=== PATIENT | male | born 1975 | race Native Hawaiian/Other Pacific Islander ===

== ENCOUNTER 2019-02-06 03:01 | Emergency (ER) | payer SELFPAY ==
[2019-02-06 03:06] VITALS: BP 108/65; PULSE 57; RESP 18; TEMP 36.6; O2SAT 97; BMI 32.4
--- NOTE | 2019-02-06 03:19 | ED_ITS ---
HPI - Abdominal Pain General Chief Complaint: Abdominal Pain Stated Complaint: abdominal pain Time Seen by Provider: 02/06/19 03:02 Source: patient Mode of arrival: ambulatory Limitations: no limitations History of Present Illness HPI narrative: Patient is an otherwise healthy 43-year-old male. Here for evaluation of left-sided abdominal pain. He states that it started yesterday but then got worse last evening. Had 1 episode of nausea but since then has not had any of those symptoms. No change in bowel habits. No problems with urinating. He states that a couple years ago he was diagnosed with diverticulitis. He states that this feels very similar to when he received that diagnosis. Has never had a kidney stone before. No rashes. No recent travel. No fevers. Related Data Home Medications Medication Instructions Recorded Confirmed ACETAMINOPHEN #0 06/29/16 Previous Rx's Medication Instructions Recorded amoxicillin-pot clavulanate 875 mg PO BID 14 Days #0 tab 06/30/16 [Augmentin] hydrocodone-acetaminophen 0 tab PO Q6HP PRN #15 tab 06/30/16 ondansetron [Zofran ODT] 4 mg SUBLINGUAL Q6HP PRN #20 odt 06/30/16 amoxicillin-pot clavulanate 1 tab PO BID 10 Days #20 tab 02/06/19 [Augmentin] hydrocodone-acetaminophen [[place]] 1 tab PO Q4-6H PRN #10 tab 02/06/19 ondansetron HCl [Zofran] 4 mg PO Q6-8H PRN #10 tab 02/06/19 Review of Systems Constitutional Denies fatigue, Denies fever(s) and Denies headache(s) ENT Ears, Nose, Mouth, and Throat: Denies headache(s) Cardiovascular Denies chest pain and Denies dyspnea Respiratory Denies dyspnea Gastrointestinal Gastrointestinal: Reports abdominal pain, Denies change in stool character, Denies constipation, Denies diarrhea, Reports nausea and Denies vomiting Genitourinary Denies dysuria Musculoskeletal Denies myalgias and Denies arthralgias Integumentary/Breasts Denies lesions and Denies rash Neurologic Denies headache(s) Endocrine Denies fatigue Hematologic/Lymphatic Denies easy bleeding and Denies easy bruising Allergic/Immunologic Denies urticaria PFSH Medical History Diverticulosis (Acute) Social History Smoking Status: Current every day smoker Social History Smoking Status: Current every day smoker Exam Initial Vital Signs Initial Vital Signs: Vital Signs Temperature 97.9 F 02/06/19 03:06 Pulse Rate 57 L 02/06/19 03:06 Respiratory Rate 18 02/06/19 03:06 Blood Pressure 108/65 02/06/19 03:06 Pulse Oximetry 97 02/06/19 03:06 Const General: cooperative, healthy appearing, comfortable, well developed, well groom ed and No acute distress Orientation: alert, awake and oriented x3 HENMT Head: normal to inspection and normocephalic Resp Effort & Inspection: normal respiratory effort Cardio Rate: regular rate Rhythm: regular rhythm Pulses: radial pulses present GI Inspection: non-distended Palpation: soft, No firm and tender (Left-sided abdomen with some guarding no right lower quadrant tenderness) Skin General: no rashes or lesions noted Neuro General: alert, awake and oriented x3 Cognition: normal cognition Speech: speech normal Extrem General: normal to inspection and capillary refill normal Psych Appearance: grossly normal and well kempt Course Orders Ordered: ED Orders 02/06/19 03:25 Complete Blood Count AUTO DIFF Stat Comprehensive Metabolic Panel Stat Lipase Stat Sodium Chloride (Normal Saline 0.9%) 1,000 mls @ 1,000 mls/hr IV BOLUS ONE Stop: 02/06/19 04:18 Last Admin: 02/06/19 03:30 Dose: 1,000 mls/hr Discontinued Medications Hydrocodone Bitart/Acetaminophen ([place] 5/325) 1 tab PO NOW ONE Stop: 02/06/19 03:36 Last Admin: 02/06/19 03:40 Dose: 1 tab Amoxicillin/Clavulanate Potassium (Augmentin 875-125 Mg) 1 tab PO NOW ONE Stop: 02/06/19 03:36 Last Admin: 02/06/19 03:40 Dose: 1 tab Vital Signs - 8 hr 02/06/19 03:06 Temperature 97.9 F Pulse Rate 57 L Respiratory Rate 18 Blood Pressure 108/65 Pulse Oximetry 97 MDM - Abdominal Pain Lab Data Attestation: I reviewed the patient's lab results. Result diagrams: 02/06/19 03:25 02/06/19 03:25 Lab Results 02/06/19 02/06/19 Range/Units 03:25 03:25 WBC 14.6 H (4.5-11.0) X10^3/uL RBC 5.18 (4.5-5.9) X10^6/uL Hgb 15.5 (13.5-17.5) g/dL Hct 46.2 (41-53) % MCV 89.1 (80-100) fL MCH 29.9 (26-34) PG MCHC 33.6 (30-36) % RDW 13.1 (11.6-14.8) % Plt Count 253 (150-400) X10^3/uL Neut % (Auto) 78.7 H (50-75) % Lymph % (Auto) 13.6 L (25-40) % [place] % (Auto) 6.2 (3-14) % Eos % (Auto) 1.0 L (2-4) % Baso % (Auto) 0.5 (0-2) % Neut # (Auto) 08384 H (7746-6115) /uL Lymph # (Auto) 2000 (5916-1984) /uL [place] # (Auto) 900 (0-900) /uL Eos # (Auto) 100 (0-450) /uL Baso # (Auto) 100 (0-100) /uL Sodium 137 (137-145) mmol/L Potassium 4.3 (3.4-5.1) mmol/L Chloride 103 (98-107) mmol/L Carbon Dioxide 26 (22-32) mmol/L BUN 14 (9-20) mg/dL Creatinine 0.90 (0.66-1.25) mg/dL Estimated GFR > 60.0 (>60) mL/min BUN/Creatinine Ratio 15.6 (6-22) Glucose 110 H (70-100) mg/dL Calcium 9.3 (8.4-10.2) mg/dL Total Bilirubin 0.9 (0.2-1.3) mg/dL AST 18 (17-59) IU/L ALT 27 (21-72) IU/L Alkaline Phosphatase 72 (38-126) U/L Total Protein 7.6 (6.3-8.2) g/dL Albumin 4.4 (3.5-5.0) g/dL Globulin 3.2 (1.7-4.1) g/dL Albumin/Globulin Ratio 1.4 (1.0-2.8) Lipase 18 L (23-300) U/L MDM Narrative Medical decision making narrative: Patient has a history of diverticulitis. He states that his symptoms have brought him in today were consistent with his josi or diagnosis. His exam is not consistent with kidney stones. Denies any urinary symptoms. Has no right lower quadrant tenderness. Low suspicion for appy. No right upper quadrant tenderness. Low suspicion for gallbladder pathology. Does have leukocytosis however a diagnosis of diverticulitis would explain this. Abdomen is not distended. It is not surgical in nature on his exam. I feel that given his presentation and his prior history of diverticulitis that this is most likely the diagnosis. Will hold on a CT scan for now. Was given 1st dose of antibiotics and pain medication here in the ER. Will send home with a prescription for these. He was given return precautions. He expressed understanding and agreement with plan. Discharge Plan Departure Patient Disposition: Home Clinical Impression: Diverticulitis Abdominal pain Qualifiers: Abdominal location: unspecified location Qualified Code(s): R10.9 - Unspecified abdominal pain Instructions: DI for Diverticulitis, DI for Abdominal Pain-Adult Activity Restrictions/Additional Instructions: Take the antibiotics as needed. I do recommend you contact your primary care doctor for a follow-up. Return to the emergency department for any new symptoms, worsening symptoms, fevers, worsening abdominal pain, any other concerning symptoms. Your 1st dose of antibiotics was given here in the ER. Her 2nd dose will be during the evening of 02/06/19 Prescriptions: New hydrocodone-acetaminophen [[place]] 5-325 mg tablet 1 tab PO Q4-6H PRN (Reason: pain) Qty: 10 RF: 0 ondansetron HCl [Zofran] 4 mg tablet 4 mg PO Q6-8H PRN (Reason: nausea and vomiting) Qty: 10 RF: 0 amoxicillin-pot clavulanate [Augmentin] 875-125 mg tablet 1 tab PO BID 10 Days Qty: 20 RF: 0 No Action ACETAMINOPHEN Qty: 0 RF: 0 hydrocodone-acetaminophen 5 MG/325 MG tablet PO Q6HP PRNQty: 15 RF: 0 ondansetron [Zofran ODT] 4 MG tablet,disintegrating 4 mg Sublingual Q6HP PRNQty: 20 RF: 0 amoxicillin-pot clavulanate [Augmentin] 875 MG/125 MG tablet 875 mg PO BID 14 Days Qty: 0 RF: 0
[2019-02-06] MEDS: SODIUM CHLORIDE 0.9% 1,000 ML 1000 ML IV (03:30)
[2019-02-06 03:32] LABS: Add Manual Diff / Slide Review NO; Basophils Absolute Auto 100 /uL (0-100); Basophils Percent Auto 0.5 % (0-2); Eosinophils Absolute Auto 100 /uL (0-450); Hematocrit 46.2 % (41-53); Hemoglobin 15.5 g/dL (13.5-17.5); Lymphocytes Absolute Auto 2000 /uL (1100-4500); Lymphocytes Percent Auto 13.6 % (25-40); Mean Corpuscular HGB Conc 33.6 % (30-36); Mean Corpuscular Hemoglobin 29.9 PG (26-34); Mean Corpuscular Volume 89.1 fL (80-100); Monocytes Absolute Auto 900 /uL (0-900); Monocytes Percent Auto 6.2 % (3-14); Neutrophils Absolute Auto 11500 /uL (1500-7000); Neutrophils Percent Auto 78.7 % (50-75); Platelet Count 253 X10^3/uL (150-400); Red Blood Cell Count 5.18 X10^6/uL (4.5-5.9); Red Cell Distribution Width 13.1 % (11.6-14.8); White Blood Cell Count 14.6 X10^3/uL (4.5-11.0)
[2019-02-06] MEDS: HYDROCODONE/ACET 5/325 TABLET 1 TAB PO (03:40)
[2019-02-06] MEDS: AMOXICILLIN/CLAV 875/125 MG 1 TAB PO (03:40)
[2019-02-06 03:41] LABS: Alanine Aminotransferase 27 IU/L (21-72); Albumin 4.4 g/dL (3.5-5.0); Albumin Globulin Ratio 1.4 (1.0-2.8); Alkaline Phosphatase 72 U/L (38-126); Aspartate Aminotransferase 18 IU/L (17-59); BUN Creatinine Ratio 15.6 (6-22); Bilirubin Total 0.9 mg/dL (0.2-1.3); Blood Urea Nitrogen 14 mg/dL (9-20); Calcium 9.3 mg/dL (8.4-10.2); Carbon Dioxide 26 mmol/L (22-32); Chloride 103 mmol/L (98-107); Estimated Glomerular Filt Rate > 60.0 mL/min (>60); Globulin 3.2 g/dL (1.7-4.1); Glucose 110 mg/dL (70-100); HEMOLYSIS < 15 (0-50); Lipase 18 U/L (23-300); Potassium 4.3 mmol/L (3.4-5.1); Sodium 137 mmol/L (137-145); Total Protein 7.6 g/dL (6.3-8.2)
[2019-02-06 04:10] VITALS: BP 111/67; PULSE 58; RESP 17; O2SAT 98
== END 2019-02-06 04:10 | disposition home or self-care (01) ==
PROVIDERS: Emergency Provider Emergency Medicine
DX: K57.92 Diverticulitis of intestine, part unspecified, without perforation or abscess without bleeding (principal); R10.9 Unspecified abdominal pain
CPT/HCPCS: 36591; 80053; 83690; 85025; 96360; 99283; 99284

== ENCOUNTER 2025-01-09 05:17 | Emergency (ER) | payer OTHER, SELFPAY ==
[2025-01-09 05:26] VITALS: BP 179/111; PULSE 84; RESP 16; TEMP 36.9; O2SAT 99; BMI 33.3
[2025-01-09 05:46] LABS: Add Manual Diff / Slide Review NO; Basophils Absolute Auto 100 /uL (0-100); Basophils Percent Auto 0.7 % (0-2); Eosinophils Absolute Auto 100 /uL (0-450); Eosinophils Percent Auto 0.5 % (2-4); Hematocrit 47.4 % (41-53); Hemoglobin 16.1 g/dL (13.5-17.5); Lymphocytes Absolute Auto 1600 /uL (1100-4500); Lymphocytes Percent Auto 12.1 % (25-40); Mean Corpuscular HGB Conc 33.9 % (30-36); Mean Corpuscular Hemoglobin 30.5 PG (26-34); Mean Corpuscular Volume 89.9 fL (80-100); Monocytes Absolute Auto 1100 /uL (0-900); Monocytes Percent Auto 7.8 % (3-14); Neutrophils Absolute Auto 10600 /uL (1500-7000); Neutrophils Percent Auto 78.9 % (50-75); Platelet Count 252 X10^3/uL (150-400); Red Blood Cell Count 5.27 X10^6/uL (4.5-5.9); Red Cell Distribution Width 13.5 % (11.6-14.8); White Blood Cell Count 13.5 X10^3/uL (4.5-11.0)
[2025-01-09 05:52] LABS: Urine Volume 10mL (spun)
[2025-01-09 05:54] LABS: Bacteria Urine None Seen; Culture Indicated Urine Cult Not Indicated; Mucus Urine 1+ (Negative); RBC Urine 0-1/HPF (0-5/HPF); Squamous Epithelial Cell Urine None Seen (0-5/HPF); WBC Urine None Seen (0-5/HPF)
[2025-01-09 05:57] LABS: Alanine Aminotransferase 22 IU/L (<50); Albumin 4.7 g/dL (3.5-5.0); Albumin Globulin Ratio 1.3 (1.0-2.8); Alkaline Phosphatase 75 U/L (38-126); Aspartate Aminotransferase 22 IU/L (17-59); BUN Creatinine Ratio 16.5 (6-22); Bilirubin Total 1.1 mg/dL (0.2-1.3); Blood Urea Nitrogen 14 mg/dL (9-20); Calcium 9.2 mg/dL (8.4-10.2); Carbon Dioxide 22 mmol/L (22-32); Chloride 106 mmol/L (98-107); Estimated Glomerular Filt Rate > 60 mL/min (>60); Globulin 3.5 g/dL (1.7-4.1); Glucose 123 mg/dL (70-100); HEMOLYSIS < 15 (0-50); Lipase 22 U/L (23-300); Potassium 4.2 mmol/L (3.4-5.1); Sodium 137 mmol/L (137-145); Total Protein 8.2 g/dL (6.3-8.2)
--- NOTE | 2025-01-09 06:06 | DI.CT.S_ITS ---
PROCEDURE: CT ABDOMEN PELVIS W CON INDICATIONS: left lower quadrant pain with history of diverticulitis TECHNIQUE: After the administration of intravenous contrast, axial sections acquired from the lung bases to the pubic symphysis. Coronal and sagittal reformats were performed. For radiation dose reduction, the following was used: automated exposure control, adjustment of mA and/or kV according to patient size. COMPARISON: [facility], CT, ABDOMEN/PELVIS WITH CONTRAST, 06/29/2016, 23:13. FINDINGS: Image quality: Diagnostic. Lower Chest: No significant findings. ABDOMEN: Liver: No solid mass. Gallbladder: No radiopaque gallstones or wall thickening. Biliary ducts: No biliary dilation. Pancreas: No ductal dilation. Spleen: Size is within normal limits. Adrenal Glands: No adrenal nodules. Kidneys and Ureters: No hydronephrosis. No solid mass. No complex renal cystic lesion which requires follow up. Stomach and Bowel: Recurrent diverticulitis involving the distal descending colon and sigmoid with extensive associated wall thickening and edema and question of small wall abscesses. There is inflammatory stranding in the subjacent fat. No extra luminal gas is identified. Peritoneum: No abnormal intraperitoneal fluid. No free air. Ventral Wall: No significant ventral hernia. Abdominal Nodes: No retroperitoneal or mesenteric adenopathy by size criteria. Vessels: Aorta and inferior vena cava are normal in size. PELVIS: Pelvic Organs: Unremarkable. Bladder: No bladder wall thickening, accounting for underdistention. Pelvic Nodes: No enlarged lymph nodes. Miscellaneous: No inguinal hernias are seen. Bones: No aggressive osseous abnormality. IMPRESSION: Severe recurrent diverticulitis involving the distal descending colon and sigmoid. Question small intramural abscesses. Impressive wall thickening and edema and associated inflammatory change in the adjacent fat. Comment: Final report is concordant with preliminary interpretation provided by [facility]. Dictated by: Uriel Blackman M.D. on 01/09/2025 at 8:01 Approved by: Uriel Blackman M.D. on 01/09/2025 at 8:12
[2025-01-09 06:42] VITALS: BP 139/94; PULSE 67; O2SAT 96
[2025-01-09 07:48] VITALS: BP 161/93; PULSE 70; RESP 16; O2SAT 99
--- NOTE | 2025-01-09 08:02 | ED.ABDPAIN ---
HPI - Abdominal Pain General Chief Complaint: Abdominal Pain Stated Complaint: lower pelvic/abd pain Time Seen by Provider: 01/09/25 06:38 Source: patient Mode of arrival: Ambulatory History of Present Illness HPI narrative: 49-year-old male with a past medical history of diverticulitis presents home for evaluation lower abdominal pain, so states that is worse to the left lower quadrant, patient also complaining of urinary frequency urgency and dysuria he denies any other symptoms such as headache visual disturbances chest pain shortness of breath fever chills or any other GI/ symptoms time. Related Data Home Medications Medication Instructions Recorded Confirmed ACETAMINOPHEN ##0 06/29/16 Previous Rx's Medication Instructions Recorded amoxicillin 875 mg-potassium 875 mg PO BID 14 days #0 tabs 06/30/16 clavulanate 125 mg tablet (Augmentin) hydrocodone 5 mg-acetaminophen 325 0 tab PO Q6HP PRN #15 tabs 06/30/16 mg tablet ondansetron 4 mg disintegrating 4 mg sublingual Q6HP PRN ##20 06/30/16 tablet (Zofran ODT) hydrocodone 5 mg-acetaminophen 325 1 tab PO Q4-6H PRN pain #10 tabs 02/06/19 mg tablet ([place]) ondansetron HCl 4 mg tablet 4 mg PO Q6-8H PRN nausea and 02/06/19 (Zofran) vomiting #10 tabs ciprofloxacin HCl 500 mg tablet 500 mg PO BID 7 days #14 tabs 01/09/25 (Cipro) metronidazole 500 mg tablet 500 mg PO BID 7 days #14 tabs 01/09/25 Allergies Allergy/AdvReac Type Severity Reaction Status Date / Time No Known Drug Allergies Allergy Verified 01/09/25 05:25 Review of Systems Review of Systems Narrative: General: Denies fever, chills, weight loss HEENT: Denies headache, eye drainage, eye irritation, head trauma, sore throat, voice change Cardiovascular: Denies any chest pain, palpitations, shortness of breath, tachycardia Respiratory: Denies any shortness of breath, cough, wheeze, stridor GI/: Positive abdominal pain, dysuria, frequency nausea, vomiting, diarrhea, bright red blood per rectum, melanotic stools, urinary frequency, hematuria MSK: Denies any joint pain, muscle pains, swelling Skin: Denies any rashes, lesions, discoloration Neuro: Denies any headache, lightheadedness, dizziness, fainting, weakness Psych: Denies SI/HI Patient History Medical History (Updated 01/09/25 @ 08:12 by Khalif Jonas DO) Diverticulosis Social History Smoking Status: Current every day smoker Smoking Status: Current every day smoker Exam Narrative Exam Narrative: General: Cooperative, comfortable, well-developed, not in acute distress HEENT: Normocephalic, atraumatic, PERRLA, normal sclera, eyelids normal, Neck: Active full range of motion, atraumatic Chest: Normal to inspection, negative crepitus, no overlying erythema ecchymosis Respiratory: Normal respiratory effort, not in acute respiratory distress, clear to auscultation bilaterally negative cough, wheeze, tachypnea, rhonchi, rales Cardiology: Regular rate rhythm negative gallop, murmur, rubs GI/: Normal to inspection, soft, nonrigid, mild to LLQ tenderness to palpation, exam deferred MSK: Full range of active range of motion of all 4 extremities, atraumatic Skin: No rashes lesions noted Neuro: Alert awake oriented x3, moves all 4 extremities spontaneously, cranial nerves intact, able to answer all questions appropriately follows commands appropriately Psych: Cooperative, negative suicidal or homicidal ideations Initial Vital Signs Initial Vital Signs: Vital Signs Temperature 98.4 F 01/09/25 05:26 Pulse Rate 84 01/09/25 05:26 Respiratory Rate 16 01/09/25 05:26 Blood Pressure 179/111 H 01/09/25 05:26 Pulse Oximetry 99 01/09/25 05:26 Oxygen Delivery Method Room Air 01/09/25 05:26 Course Orders Ordered: ED Orders 01/09/25 05:38 Complete Blood Count AUTO DIFF Stat Comprehensive Metabolic Panel Stat Lipase Stat 01/09/25 05:39 Urine Microscopic Stat 01/09/25 06:06 CT abdomen pelvis w con Stat Ondansetron HCl (Ondansetron 4 Mg/2 Ml Inj) 4 mg IV NOW PRN PRN Reason: Nausea And Vomiting Ondansetron HCl (Ondansetron 4 Mg Odt) 4 mg PO NOW PRN PRN Reason: Nausea And Vomiting Vital Signs Vital signs: Vital Signs - 8 hr 01/09/25 05:26 01/09/25 06:42 01/09/25 07:48 Temperature 98.4 F Pulse Rate 84 67 70 Respiratory Rate 16 16 Blood Pressure 179/111 H 139/94 H 161/93 H Pulse Oximetry 99 96 99 Oxygen Delivery Method Room Air MDM - Abdominal Pain Differential Diagnosis Differential diagnosis: Likely abdominal pain, acute appendicitis, constipation, diverticulitis, small bowel obstruction and other (Urinary tract infection, electrolyte abnormality) Lab Data 01/09/25 05:38 01/09/25 05:38 Labs: Lab Results 01/09/25 01/09/25 Range/Units 05:38 05:39 WBC 13.5 H (4.5-11.0) X10^3/uL RBC 5.27 (4.5-5.9) X10^6/uL Hgb 16.1 (13.5-17.5) g/dL Hct 47.4 (41-53) % MCV 89.9 (80-100) fL MCH 30.5 (26-34) PG MCHC 33.9 (30-36) % RDW 13.5 (11.6-14.8) % Plt Count 252 (150-400) X10^3/uL Neut % (Auto) 78.9 H (50-75) % Lymph % (Auto) 12.1 L (25-40) % [place] % (Auto) 7.8 (3-14) % Eos % (Auto) 0.5 L (2-4) % Baso % (Auto) 0.7 (0-2) % Neut # (Auto) 45409 H (1039-9430) /uL Lymph # (Auto) 1600 (7471-1884) /uL [place] # (Auto) 1100 H (0-900) /uL Eos # (Auto) 100 (0-450) /uL Baso # (Auto) 100 (0-100) /uL Sodium 137 (137-145) mmol/L Potassium 4.2 (3.4-5.1) mmol/L Chloride 106 (98-107) mmol/L Carbon Dioxide 22 (22-32) mmol/L BUN 14 (9-20) mg/dL Creatinine 0.85 (0.66-1.25) mg/dL Estimated GFR > 60 (>60) mL/min BUN/Creatinine Ratio 16.5 (6-22) Glucose 123 H (70-100) mg/dL Calcium 9.2 (8.4-10.2) mg/dL Total Bilirubin 1.1 (0.2-1.3) mg/dL AST 22 (17-59) IU/L ALT 22 (<50) IU/L Alkaline Phosphatase 75 (38-126) U/L Total Protein 8.2 (6.3-8.2) g/dL Albumin 4.7 (3.5-5.0) g/dL Globulin 3.5 (1.7-4.1) g/dL Albumin/Globulin Ratio 1.3 (1.0-2.8) Lipase 22 L (23-300) U/L Urine RBC 0-1/hpf (0-5/HPF) Urine WBC None seen (0-5/HPF) Ur Squamous Epith Cells None seen (0-5/HPF) Urine Bacteria None seen (None) Urine Mucus 1+ H (Negative) Ur Culture Indicated? Cult not indicated Vol Urine Centrifuged 10ml (spun) Point of care testing: Urine Dip Bedside Urine Glucose Negative Bedside Urine Bilirubin - Negative Bedside Urine Ketone +/- 5 Urine Specific [place] 1.025 Bedside Urine Occult Blood +/- Bedside Urine pH 6.0 Bedside Urine Protein +/- 15 Bedside Urine Urobilinogen - Negative Bedside Urine Nitrite - Negative Bedside Urine Leukocytes - Negative Esterase Imaging Data CT scan - abdomen/pelvis: Radiologist's Impression: Preliminary read showing diverticulitis of the descending/sigmoid colonic junction and proximal sigmoid colon with they bring moderate fat stranding, 2 questionable small intramural abscesses measuring 10 x 6 mm however no extraluminal air or extraluminal abscess, distended gallbladder otherwise unremarkable. [facility] Narrative Medical decision making narrative: 49-year-old male with a history of diverticulitis presenting for lower abdominal pain dysuria frequency,. Patient had lab work imaging performed here which consistent with a diverticulitis. Patient with leukocytosis 13.5 however not meeting sirs or sepsis criteria otherwise. CT scan showing diverticulitis of the descending/sigmoid colonic junction and proximal sigmoid questionable intramural abscesses without extraluminal air or extraluminal abscesses, patient will be given 1st dose of antibiotics here and sent home with oral antibiotics with strict return precautions and told to follow up with primary care and general surgery. Patient verbalized understanding of this and agrees to being discharged home with outpatient follow up Discharge Plan Departure Patient Disposition: Home Clinical Impression: Diverticulitis Instructions: DI for Diverticulitis Activity Restrictions/Additional Instructions: Please follow up with primary care and GI in outpatient setting Please read the discharge instructions sheet carefully and bring all papers to all doctor follow-up visits, as it may contain information that your doctor may want to see. Disease processes change and evolve, if your symptoms worsen or if you develop any new symptoms that are concerning to you please return for evaluation. Your evaluation today does not show any evidence of any life-threatening/serious illnesses requiring admission to the hospital or surgery. Please follow-up with your doctor for re-evaluation in approximately 1 day. Seek immediate medical attention for any worrisome symptoms. *If you do not have a primary care provider please contact the [facility] Resource line at [phone]. They will ask some questions about your medical history and help get you set up with a doctor in the community. Prescriptions: New ciprofloxacin HCl [Cipro] 500 mg tablet 500 mg PO BID 7 Days Qty: 14 0RF metronidazole 500 mg tablet 500 mg PO BID 7 Days Qty: 14 0RF No Action ACETAMINOPHEN Qty: 0 hydrocodone-acetaminophen 5 MG/325 MG tablet 0 tab PO Q6HP PRNQty: 15 0RF ondansetron [Zofran ODT] 4 MG tablet,disintegrating 4 mg Sublingual Q6HP PRNQty: 20 0RF amoxicillin-pot clavulanate [Augmentin] 875 MG/125 MG tablet 875 mg PO BID 14 Days Qty: 0 0RF hydrocodone-acetaminophen [[place]] 5-325 mg tablet 1 tab PO Q4-6H PRN (Reason: pain) Qty: 10 0RF ondansetron HCl [Zofran] 4 mg tablet 4 mg PO Q6-8H PRN (Reason: nausea and vomiting) Qty: 10 0RF Referrals: Hung Wang MD [Non-Staff] - 5-7 days Stand Alone Forms: Patient Portal/API/Survey
[2025-01-09] MEDS: ONDANSETRON 4 MG ODT PO (08:28)
[2025-01-09] MEDS: metroNIDAZOLE 500 MG TABLET PO (08:28)
[2025-01-09] MEDS: CIPROFLOXACIN 250 MG TABLET 500 MG PO (08:29)
[2025-01-09 08:35] VITALS: PULSE 78; RESP 16; O2SAT 99
== END 2025-01-09 08:36 | disposition home or self-care (01) ==
PROVIDERS: Emergency Medicine; Emergency Provider Student in an Organized Health Care Education/Training Program
DX: K57.32 Diverticulitis of large intestine without perforation or abscess without bleeding (principal); R30.0 Dysuria; R35.0 Frequency of micturition
CPT/HCPCS: 36415; 74177; 80053; 81003; 81015; 83690; 85025; 99283; 99284; Q9967